=== PATIENT | female | born 1960 | race Two or more races ===

== ENCOUNTER 2024-06-07 03:24 | Emergency (ER) | payer OTHER ==
[~2024-06-07] VITALS: Ht 160 cm; Wt 83.9 kg
[2024-06-07] MEDS ORDERED: LOSARTAN POTASS50 MG (03:49)
[2024-06-07] MEDS ORDERED: ROSUVASTATIN CA10 MG PO (03:50)
[2024-06-07] MEDS ORDERED: ACETAMINOPHEN 500 MG GEL..CAP PO STA (07:08)
[2024-06-07] MEDS ORDERED: GUAIFENESIN 200 MG/10 ML BLIST.PACK PO STA (07:09)
[2024-06-07] MEDS ORDERED: DIPHENHYDRAMINE HCL 12.5 MG/5 ML BLIST.PACK PO STA (07:09)
[2024-06-07] MEDS ORDERED: ACETAMINOPHEN 500 MG GEL..CAP PO ONE (07:28)
[2024-06-07] MEDS ORDERED: DIPHENHYDRAMINE HCL 12.5 MG/5 ML BLIST.PACK PO ONE (07:29)
[2024-06-07] MEDS ORDERED: GUAIFENESIN 200 MG/10 ML BLIST.PACK PO ONE (07:29)
[2024-06-07 07:52] LABS: HEMATOCRIT 41.8 % (36.0-45.00); HEMOGLOBIN 13.8 g/dL (12.0-15.00); MEAN CELL VOLUME 79.3 fL (80.00-100.00); MEAN CORPUSCULAR HEMOGLOBIN 26.2 pg (27.00-32.0); PLATELET COUNT 175 K/uL (150-450); RED BLOOD COUNT 5.27 M/uL (4.00-6.00); RED CELL DISTRIBUTION WIDTH 15.6 % (11.5-14.5)
[2024-06-07] MEDS ORDERED: OSELTAMIVIR PHOSPHATE 75 MG CAPSULE PO ONE ×2 (09:00→09:06)
== END 2024-06-07 09:36 | disposition home or self-care (01) ==
LOC: ER 03:27
PROVIDERS: General Practice
DX: R53.81 Other malaise (principal); J10.1 Influenza due to other identified influenza virus with other respiratory manifestations; R50.9 Fever, unspecified; Z20.822 Contact with and (suspected) exposure to COVID-19; I10 Essential (primary) hypertension; Z88.5 Allergy status to narcotic agent; Z88.7 Allergy status to serum and vaccine